=== PATIENT | female | born 1980 | race Asian ===

== ENCOUNTER 2025-07-25 11:19 | Emergency (ER) | payer SELFPAY ==
[~2025-07-25] VITALS: Ht 162.6 cm; Wt 62.6 kg
== END 2025-07-25 13:06 | disposition home or self-care (01) ==
LOC: ER 11:19
DX: S96.912A Strain of unspecified muscle and tendon at ankle and foot level, left foot, initial encounter (principal); M17.12 Unilateral primary osteoarthritis, left knee; M25.561 Pain in right knee; X50.0XXA Overexertion from strenuous movement or load, initial encounter
CPT/HCPCS: 73562-LT; 73562-RT; 73610; 99283-25; A9270